=== PATIENT | male | born 1965 | race Caucasian/White ===

== ENCOUNTER 2024-05-07 06:06 | Day surgery (SDC) | payer BC, SELFPAY ==
[2024-05-06 11:28] LABS: % Basophils 0.9 % (0-2); % Eosinophils 2.8 % (0-6); % Immature Granulocytes 0.4 % (0-0.5); % Lymphocytes 15.9 % (20.5-51.1); % Monocytes 9.2 % (1.7-9.3); % Neutrophils 70.8 % (42.2-75.2); Absolute Basophils 0.1 10^3/uL (0-0.2); Absolute Eosinophils 0.2 10^3/uL (0-0.7); Absolute Lymphocytes 0.9 10^3/uL (1.2-3.4); Absolute Monocytes 0.5 10^3/uL (0.1-0.6); Absolute Neutrophils 3.8 10^3/uL (1.4-6.5); Hematocrit 46.5 % (39.0-52.0); Hemoglobin 16.4 g/dL (13.0-18.0); Mean Corp Hgb Conc. 35.3 g/dL (33.0-37.0); Mean Corpuscular Hgb 32.1 pg (27.0-31.0); Mean Platelet Volume 9.6 fL (7.4-10.4); Nucleated Red Blood Cells % 0 % (-); Platelet Count 220 10^3/uL (130-400); Red Blood Cell Count 5.11 10^6/uL (4.70-6.10); Red Cell Dist. Width 13.2 % (11.5-14.5); White Blood Cell Count 5.4 10^3/uL (4.8-10.8)
[2024-05-06 11:38] LABS: ALT (SGPT) 37 U/L (0-50); AST (SGOT) 53 U/L (17-59); Albumin 4.7 g/dl (3.5-5.0); Alkaline Phosphatase 59 U/L (38-126); Blood Urea Nitrogen 16 mg/dl (9-20); Calcium 9.6 mg/dl (8.4-10.2); Carbon Dioxide 31 mmol/L (22-30); Chloride 103 mmol/L (98-107); Estimated Creatinine Clearance 70 ml/min; Glucose 118 mg/dl (70-99); Potassium 4.7 mmol/L (3.5-5.1); Sodium 141 mmol/L (135-145); Total Bilirubin 0.8 mg/dl (0.2-1.3); Total Protein 7.3 g/dl (6.3-8.2); eGFR > 60.00
[2024-05-07] VITALS (16 sets, daily range): BP systolic 109–149; BP diastolic 71–89
[2024-05-07] MEDS: NSS 289 ML IV (06:33)
--- NOTE | 2024-05-07 09:00 | ITS.CL.CATH ---
[employer] - Catheterization
Cardiac Catheterization
Procedure Report:
CARDIAC CATHETERIZATION REPORT
Date of Procedure: 05/07/2024
Referring: Torin Wilson MD
HEMODYNAMIC DATA
AO: 123/88
LV: Not done
LEFT VENTRICULOGRAPHY: Not done
ASCENDING AORTOGRAPHY: There is dilation of the aortic root and ascending aorta with severe calcification of the aortic valve. There is moderate aortic insufficiency.
CORONARY ANGIOGRAPHY
Dominance: Right
Left Main: Normal
LAD: Normal
Circumflex: Normal
RCA: Normal dominant vessel. There is a low anterior takeoff of the RCA noted.
Closure Device: None-the procedure was performed via the right radial artery.
Radiation (mGy): 575
DAP (cm2.Gy): 58.7
Fluoroscopy time: 10.3 minutes
CONCLUSIONS
1: No evidence of significant CAD
2: Dilated aortic root and ascending aorta
3. Moderate aortic insufficiency
4. Aortic stenosis not invasively evaluated
Copy to: Torin Wilson MD
Torin Wilson MD, [facility], [facility]
[2024-05-07] MEDS: NSS 1000 IV (10:04)
[2024-05-07] MEDS: TYLENOL 650 MG PO (11:16)
== END 2024-05-07 11:28 | disposition home or self-care (01) ==
LOC: CATH 06:06
PROVIDERS: ATTENDING PHYSICIAN Internal Medicine Cardiovascular Disease
DX: I35.2 Nonrheumatic aortic (valve) stenosis with insufficiency (principal); I10 Essential (primary) hypertension; K21.9 Gastro-esophageal reflux disease without esophagitis; F17.290 Nicotine dependence, other tobacco product, uncomplicated; Z79.82 Long term (current) use of aspirin
CPT/HCPCS: 36415; 80053; 85025; 93005; 93454; 93567; C1894; Q9967

== ENCOUNTER → 2024-08-09 08:22 | Outpatient (REF) | payer BC, SELFPAY | LOC: RCS 08:22 | PROVIDERS: ATTENDING PHYSICIAN Internal Medicine Cardiovascular Disease; FAMILY PHYSICIAN Nurse Practitioner | DX: Z95.4 Presence of other heart-valve replacement (principal) | CPT/HCPCS: 93306 ==

== ENCOUNTER → 2025-06-15 12:52 | Outpatient (REF) | payer BC, SELFPAY | LOC: RCS 12:52 | PROVIDERS: ATTENDING PHYSICIAN Student in an Organized Health Care Education/Training Program; FAMILY PHYSICIAN Nurse Practitioner | DX: I35.0 Nonrheumatic aortic (valve) stenosis (principal); Z95.4 Presence of other heart-valve replacement | CPT/HCPCS: 93306 ==

== ENCOUNTER → 2025-09-19 11:35 | Outpatient (REF) | payer BC, SELFPAY | LOC: HWRAD 11:35 | PROVIDERS: ATTENDING PHYSICIAN Otolaryngology; FAMILY PHYSICIAN Nurse Practitioner | DX: J32.0 Chronic maxillary sinusitis (principal); J34.2 Deviated nasal septum; J34.3 Hypertrophy of nasal turbinates | CPT/HCPCS: 70486 ==